=== PATIENT | female | born 1940 | race Caucasian/White ===

== ENCOUNTER 2016-11-29 08:53 | Emergency (ER) | payer MEDICARE, OTHER ==
[2015-05-26 13:51] VITALS: BMI 23.4
[~2016-11-29 08:53] MED LIST: ADVAIR 500/501 DISK INH; ASTELIN137 MCG NS; BONIVA150 MG PO; FLOVENT DI50 MCG/DIS INH; LASIX20 MG PO; LEVOXYL75 MCG PO; MEDROL DOSE PACK4 MG PO; MEDROL4 MG PO; SINGULAIR10 MG PO; SPIRIVA18 MCG INH; VENTOLIN HFA18 GM INH; ZITHROMAX 500M500 MG PO; ZPAK PO
[2016-11-29 09:18] LABS: BASOPHILS 0.6 % (0.0-2.0); EOSINOPHILS 1.4 % (0-7); HEMATOCRIT 39.6 % (36.0-48.0); HEMOGLOBIN 13.1 g/dL (12-16); IMMATURE GRANULOCYTES 0.5 % (0-5); LYMPHOCYTES 6.4 % (15-50); MCHC 33.1 g/dL (31.0-37.0); MCV 90.8 fL (80.0-100.0); MEAN PLATELET VOLUME 9.6 fL (7.4-10.4); MONOCYTES 15.4 % (2-11); NEUTROPHILS 75.7 % (40-80); PLATELET COUNT 197 10x3/uL (130-400); RBC 4.36 10x6/uL (4.00-5.40); RDW 14.3 % (11.5-14.5)
[2016-11-29 09:31] LABS: ALBUMIN 3.3 g/dL (3.4-5.0); ANION GAP 12.7 mmol/L (8-16); BILIRUBIN - TOTAL 0.54 mg/dL (0.2-1.3); CALCIUM 8.6 mg/dL (8.5-10.1); CARBON DIOXIDE 25.2 mmol/L (21.0-32.0); CREATININE - SERUM 0.8 mg/dL (0.6-1.3); POTASSIUM - SERUM 3.9 mmol/L (3.5-5.1); PROTEIN - SERUM 6.4 g/dL (6.4-8.2)
[2016-11-29 10:08] LABS: APPEARANCE HAZY (CLEAR); BILIRUBIN NEGATIVE (NEGATIVE); COLOR YELLOW (YELLOW); GLUCOSE NEGATIVE (NEGATIVE); KETONE MODERATE mg/dL (NEGATIVE); LEUKOCYTE ESTERASE TRACE (NEGATIVE); NITRITE NEGATIVE (NEGATIVE); PROTEIN TRACE mg/dL (NEGATIVE); SPECIFIC GRAVITY 1.015 (1.005-1.020); UROBILINOGEN NORMAL (NORMAL); WHITE CELLS - URINE OCC /hpf (0-5)
[2016-11-29 10:09] LABS: BACTERIA FEW /hpf (NONE SEEN); EPITHELIAL CELLS OCC /hpf (0-5); MUCUS <1+ /lpf (NONE SEEN); RED CELLS - URINE RARE /hpf (0-5)
== END 2016-11-29 13:20 | disposition home or self-care (01) ==
LOC: D.ER 08:53
PROVIDERS: Emergency Medicine Emergency Medical Services
DX: J11.1 Influenza due to unidentified influenza virus with other respiratory manifestations (principal); J44.9 Chronic obstructive pulmonary disease, unspecified

== ENCOUNTER → 2017-04-25 15:17 | Outpatient (CLI) | payer MEDICARE, OTHER ==
[2015-05-26 13:51] VITALS: BMI 23.4
== END | disposition home or self-care (01) ==
LOC: D.CT 15:17
DX: J32.9 Chronic sinusitis, unspecified (principal)

== ENCOUNTER → 2017-07-15 12:57 | Outpatient (CLI) | payer MEDICARE, OTHER ==
[2015-05-26 13:51] VITALS: BMI 23.4
== END | disposition home or self-care (01) ==
LOC: D.CT 12:57
DX: R05 Cough (principal)

== ENCOUNTER → 2017-07-26 09:10 | Outpatient (CLI) | payer MEDICARE, OTHER ==
[2015-05-26 13:51] VITALS: BMI 23.4
== END | disposition home or self-care (01) ==
LOC: D.US 09:10
DX: R10.9 Unspecified abdominal pain (principal)

== ENCOUNTER → 2017-12-14 17:23 | Outpatient (CLI) | payer MEDICARE, OTHER ==
[2015-05-26 13:51] VITALS: BMI 23.4
[~2017-12-14 17:23] MED LIST changes: +ALDACTONE25 MG PO; +BREO ELLIPTA 21 EACH; +INCRUSE ELLI62.5 MCG INH; -LASIX20 MG PO; +LASIX40 MG PO; +LEVOXYL50 MCG PO; -LEVOXYL75 MCG PO; +MUCINEX600 MG PO; +OMEPRAZOLE20 M1 PO; +STERAPRED DS 1210 MG PO; +VESICARE10 MG PO
== END | disposition home or self-care (01) ==
LOC: D.MAMMO 11:00
DX: Z12.31 Encounter for screening mammogram for malignant neoplasm of breast (principal)

== ENCOUNTER 2017-12-27 07:56 | Outpatient (CLI) | payer MEDICARE, OTHER ==
[~2017-12-27] VITALS: Ht 157.5 cm; Wt 50.0 kg
[~2017-12-27 07:56] MED LIST changes: -ALDACTONE25 MG PO; -BREO ELLIPTA 21 EACH; -INCRUSE ELLI62.5 MCG INH; -MUCINEX600 MG PO; -OMEPRAZOLE20 M1 PO; -STERAPRED DS 1210 MG PO; -VESICARE10 MG PO
[2017-12-27 09:01] LABS: HEMATOCRIT 39.5 % (36.0-48.0); MCHC 32.9 g/dL (31.0-37.0); MEAN PLATELET VOLUME 8.9 fL (7.4-10.4); RBC 4.34 10x6/uL (4.00-5.40); RDW 14.6 % (11.5-14.5); WBC 14.6 10x3/uL (4.8-10.8)
[2017-12-27 09:07] LABS: APTT 24.3 SECONDS (22.8-39.4); INR 1.07 (0.85-1.17); PROTIME 13.5 SECONDS (11.6-15.0)
[2017-12-27 09:10] LABS: PLATELET COUNT 525 10x3/uL (130-400)
[2017-12-27] MEDS ORDERED: BREO ELLIPTA 21 EACH (09:26)
[2017-12-27] MEDS ORDERED: INCRUSE ELLI62.5 MCG INH (09:26)
[2017-12-27] MEDS ORDERED: OMEPRAZOLE20 M1 PO (09:27)
[2017-12-27] MEDS ORDERED: ALDACTONE25 MG PO (09:28)
[2017-12-27] MEDS ORDERED: VESICARE10 MG PO (09:29)
[2017-12-27] MEDS ORDERED: STERAPRED DS 1210 MG PO (09:31)
[2017-12-27] MEDS ORDERED: MUCINEX600 MG PO (09:32)
[2017-12-27 09:38] VITALS: BP 124/64; Ht 157.5 cm; Wt 50.0 kg
[2017-12-27 09:58] LABS: LYMPHOCYTES 12 % (15-50); MONOCYTES 11 % (2-11); NEUTROPHILS 74 % (40-80); PLATELET ESTIMATE INCREASED
[2017-12-28 13:17] LABS: FUNGUS STAIN Final report (())
[2017-12-28 17:12] LABS: AFB SPECIMEN PROCESSING Concentration (())
[2018-01-03 14:19] LABS: FUNGUS CULTURE RESULT 1 Candida albicans (()); FUNGUS MYCOLOGY CULTURE Final report (())
[2018-01-16 12:12] LABS: ACID FAST CULTURE Positive (()); ACID FAST SMEAR Negative (()); M TUBERCULOSIS Negative (())
[2018-02-01 14:48] LABS: AMIKACIN 8.0 ug/mL (())
== END 2017-12-27 14:15 | disposition home or self-care (01) ==
LOC: D.OPS 07:56
PROVIDERS: Internal Medicine Pulmonary Disease
DX: J45.909 Unspecified asthma, uncomplicated (principal); J30.9 Allergic rhinitis, unspecified; R06.2 Wheezing; R05 Cough; D80.9 Immunodeficiency with predominantly antibody defects, unspecified; R06.02 Shortness of breath; Z01.812 Encounter for preprocedural laboratory examination

== ENCOUNTER 2018-03-07 10:20 | Inpatient (IN) | payer MEDICARE, OTHER ==
[~2018-03-07] VITALS: Ht 157.5 cm; Wt 49.0 kg
--- NOTE | ~2018-03-07 | OP ---
PATIENT NAME: BAKARI QUINTERO MEDICAL RECORD: [id number] LOCATION:[id number] ADMISSION DATE:03/07/18 SURGEON: OCTAVIA MORFIN MD DATE OF OPERATION: 03/10/2018 PREOPERATIVE DIAGNOSIS: Displaced femoral neck fracture of the left hip. POSTOPERATIVE DIAGNOSIS: Displaced femoral neck fracture of the left hip. PROCEDURE: Endoprosthetic bipolar prosthesis for displaced left femoral neck fracture. SURGEON: Octavia Morfin MD [employer] SALES ASSOCIATE: first anuradha Brown. INTRAOPERATIVE COMPLICATIONS: None. SUMMARY OF PATHOLOGIC FINDINGS: Displaced femoral neck fracture consistent with preoperative radiographs. IMPLANTS USED: Joel Anato stem size 130 x 5, 26 standard inner head V40 and a 43 x 26 outer component. ESTIMATED BLOOD LOSS: 100 cc. PROCEDURE IN DETAIL: After obtaining the appropriate preoperative orthopedic surgery consent as well as anesthetic consultation, evaluation and clearance, the patient was brought to the operating room and placed on the operating table in supine position. After general laryngeal mask airway was administered, the patient was placed in a right lateral decubitus position. All pressure points well padded to include down leg peroneal pad as well as axillary roll. The patient was held firmly to the operating table using the vacuum pack suction system. Left lower extremity and hip were then prepped and draped in routine sterile fashion. Curvilinear incision made over the greater trochanter. Dissection was carried down to the level of IT band. The IT band was split in line with fibers to reveal gluteus medius minimus. Gluteus medius minimus reflected anteriorly and saved for later reapproximation. The hip capsule was split in a T-type fashion. Fracture hematoma was evacuated. Femoral neck cut was made using the Anato femoral neck cutting guide. This was followed by extraction of the femoral head from the hip. Measurements were taken. The hip was irrigated and swept free of any fragmentation. Serial and sequential reaming and broaching for a size 5 Anato hip stem size [address] Trial was undertaken. It was felt that the standard 43 was the most appropriate. This was snapped together, tamped into place on the Villalobos taper, reduced, taken through a range of motion. Intraoperative radiograph showed excellent position and placement of all components. Hip capsule was reapproximated with #2 Ethibond followed by 5 transosseous reapproximation of gluteus medius minimus back to the greater trochanter. IT band was likewise closed with #2 Ethibond followed by #1 Vicryl, 2-0 Vicryl, and skin satinder. Sterile dressings were applied. The patient was awakened and taken to recovery room in stable condition. All final needle and sponge counts were correct. TRANSINT:[id number] Voice Confirmation ID: [id number] DOCUMENT ID: [id number] OPERATIVE REPORT [id number] BAKARI QUINTERO MD, COTAVIA HANDLEY at 1520 CC: [id number] DICTATION DATE: 03/10/18 1630 HAND EMBROIDERER: 03/11/18 0043 ADM IN [facility] [address] [place] [address]
[~2018-03-07 10:20] MED LIST changes: +ALDACTONE25 MG PO; +BREO ELLIPTA 21 EACH; +INCRUSE ELLI62.5 MCG INH; +MUCINEX600 MG PO; +OMEPRAZOLE20 M1 PO; +STERAPRED DS 1210 MG PO; +VESICARE10 MG PO
[2018-03-07 12:00] LABS: INR 0.96 (0.85-1.17); PROTIME 12.4 SECONDS (11.6-15.0)
[2018-03-07 12:02] LABS: APPEARANCE CLEAR (CLEAR); BILIRUBIN NEGATIVE (NEGATIVE); COLOR YELLOW (YELLOW); GLUCOSE NEGATIVE (NEGATIVE); KETONE NEGATIVE (NEGATIVE); NITRITE NEGATIVE (NEGATIVE); PROTEIN NEGATIVE (NEGATIVE); SPECIFIC GRAVITY 1.005 (1.005-1.020); UROBILINOGEN NORMAL (NORMAL)
[2018-03-07 12:26] LABS: ALBUMIN 3.2 g/dL (3.4-5.0); ALKALINE PHOSPHATASE 78 U/L (46-116); ALT (SGPT) 32 U/L (10-68); CALC OSMOLALITY 281 mosm/kg (275-300); CALCIUM 9.4 mg/dL (8.5-10.1); CARBON DIOXIDE 25.8 mmol/L (21.0-32.0); CHLORIDE - SERUM 106 mmol/L (98-107); CREATININE - SERUM 0.8 mg/dL (0.6-1.3); GLUCOSE 85 mg/dL (74-106); POTASSIUM - SERUM 3.9 mmol/L (3.5-5.1); PROTEIN - SERUM 6.2 g/dL (6.4-8.2); SODIUM 141 mmol/L (136-145); UREA NITROGEN 17 mg/dL (7-18); eGFR NON AFRICAN AMERICAN 74 mL/min (90-120)
[2018-03-07 12:35] LABS: CREATINE KINASE 96 UL (21-215); PRO BNP 214 pg/mL (0-450); TROPONIN-I < 0.017 ng/mL (0.000-0.060)
[2018-03-07 13:33] LABS: BASOPHILS 0.6 % (0-2); EOSINOPHILS 1.5 % (0-7); HEMATOCRIT 36.7 % (36.0-48.0); HEMOGLOBIN 12.2 g/dL (12-16); IMMATURE GRANULOCYTES 0.3 % (0-5); LYMPHOCYTES 14.2 % (15-50); MCH 30.2 pg (26.0-34.0); MCHC 33.2 g/dL (31.0-37.0); MCV 90.8 fL (80.0-100.0); MEAN PLATELET VOLUME 9.8 fL (7.4-10.4); MONOCYTES 11.4 % (2-11); RBC 4.04 10x6/uL (4.00-5.40); RDW 14.5 % (11.5-14.5); WBC 7.3 10x3/uL (4.8-10.8)
[2018-03-07 13:34] LABS: PLATELET COUNT 234 10x3/uL (130-400)
[2018-03-08 03:56] VITALS: BP 98/43
[2018-03-08 04:49] VITALS: BP 98/43; BMI 19.8
[2018-03-08 06:10] LABS: BASOPHILS 0.6 % (0-2); EOSINOPHILS 3.3 % (0-7); HEMATOCRIT 33.5 % (36.0-48.0); IMMATURE GRANULOCYTES 0.1 % (0-5); LYMPHOCYTES 12.1 % (15-50); MCH 30.1 pg (26.0-34.0); MCHC 32.8 g/dL (31.0-37.0); MCV 91.5 fL (80.0-100.0); MEAN PLATELET VOLUME 9.4 fL (7.4-10.4); MONOCYTES 13.4 % (2-11); NEUTROPHILS 70.5 % (40-80); RBC 3.66 10x6/uL (4.00-5.40); RDW 14.5 % (11.5-14.5)
[2018-03-08 06:35] LABS: PLATELET COUNT 176 10x3/uL (130-400)
[2018-03-08 06:44] LABS: ALBUMIN 2.6 g/dL (3.4-5.0); ALKALINE PHOSPHATASE 55 U/L (46-116); ALT (SGPT) 24 U/L (10-68); CALC OSMOLALITY 277 mosm/kg (275-300); CALCIUM 8.1 mg/dL (8.5-10.1); CARBON DIOXIDE 26.3 mmol/L (21.0-32.0); CHLORIDE - SERUM 108 mmol/L (98-107); CREATININE - SERUM 0.6 mg/dL (0.6-1.3); GLUCOSE 86 mg/dL (74-106); PROTEIN - SERUM 5.2 g/dL (6.4-8.2); SODIUM 140 mmol/L (136-145); eGFR NON AFRICAN AMERICAN > 90 mL/min (90-120)
[2018-03-08 06:48] LABS: UREA NITROGEN 12 mg/dL (7-18)
[2018-03-08 08:06] VITALS: BP 129/57
[2018-03-08 12:44] VITALS: BP 127/62
[2018-03-08 12:52] VITALS: Ht 157.5 cm; Wt 49.0 kg
[2018-03-08 16:25] VITALS: BP 116/40
[2018-03-08 21:38] VITALS: BP 99/34
[2018-03-09 03:50] VITALS: BP 102/41
[2018-03-09 06:00] LABS: BASOPHILS 0.3 % (0-2); EOSINOPHILS 0.9 % (0-7); HEMATOCRIT 32.7 % (36.0-48.0); IMMATURE GRANULOCYTES 0.8 % (0-5); LYMPHOCYTES 3.8 % (15-50); MCHC 33.6 g/dL (31.0-37.0); MEAN PLATELET VOLUME 9.6 fL (7.4-10.4); NEUTROPHILS 85.2 % (40-80); PLATELET COUNT 153 10x3/uL (130-400); RBC 3.67 10x6/uL (4.00-5.40); RDW 14.2 % (11.5-14.5)
[2018-03-09 06:05] LABS: WBC 15.2 10x3/uL (4.8-10.8)
[2018-03-09 06:06] LABS: MCV 89.1 fL (80.0-100.0)
[2018-03-09 06:22] LABS: CALC OSMOLALITY 266 mosm/kg (275-300); CALCIUM 7.7 mg/dL (8.5-10.1); CARBON DIOXIDE 21.4 mmol/L (21.0-32.0); CHLORIDE - SERUM 101 mmol/L (98-107); CREATININE - SERUM 0.7 mg/dL (0.6-1.3); GLUCOSE 71 mg/dL (74-106); SODIUM 135 mmol/L (136-145); UREA NITROGEN 11 mg/dL (7-18); eGFR NON AFRICAN AMERICAN 86 mL/min (90-120)
[2018-03-09 08:30] VITALS: BP 96/39
[2018-03-09 12:27] VITALS: BP 109/38
[2018-03-09 13:05] LABS: APPEARANCE CLEAR (CLEAR); COLOR YELLOW (YELLOW); NITRITE NEGATIVE (NEGATIVE); PROTEIN NEGATIVE (NEGATIVE); SPECIFIC GRAVITY 1.015 (1.005-1.020)
[2018-03-09 13:06] LABS: BILIRUBIN NEGATIVE (NEGATIVE); GLUCOSE NEGATIVE (NEGATIVE); KETONE MODERATE mg/dL (NEGATIVE); UROBILINOGEN NORMAL (NORMAL)
[2018-03-09 13:09] LABS: BACTERIA MODERATE /hpf (NONE SEEN); EPITHELIAL CELLS 0-5 /hpf (0-5); MUCUS <1+ /lpf (NONE SEEN); WHITE CELLS - URINE 0-5 /hpf (0-5)
[2018-03-09 15:59] VITALS: BP 118/42
[2018-03-09 21:15] VITALS: BP 121/56
[2018-03-10] VITALS (9 sets, daily range): BP systolic 91–125; BP diastolic 40–63
[2018-03-10 04:21] LABS: BASOPHILS 0.1 % (0-2); EOSINOPHILS 0.2 % (0-7); HEMATOCRIT 29.8 % (36.0-48.0); HEMOGLOBIN 10.1 g/dL (12-16); IMMATURE GRANULOCYTES 3.6 % (0-5); LYMPHOCYTES 2.9 % (15-50); MCH 29.9 pg (26.0-34.0); MCHC 33.9 g/dL (31.0-37.0); MCV 88.2 fL (80.0-100.0); MEAN PLATELET VOLUME 9.4 fL (7.4-10.4); NEUTROPHILS 83.2 % (40-80); RBC 3.38 10x6/uL (4.00-5.40); WBC 15.5 10x3/uL (4.8-10.8)
[2018-03-10 04:22] LABS: PLATELET COUNT 117 10x3/uL (130-400)
[2018-03-10 04:27] LABS: CALC OSMOLALITY 268 mosm/kg (275-300); CALCIUM 7.8 mg/dL (8.5-10.1); CARBON DIOXIDE 20.9 mmol/L (21.0-32.0); CHLORIDE - SERUM 103 mmol/L (98-107); CREATININE - SERUM 0.7 mg/dL (0.6-1.3); GLUCOSE 92 mg/dL (74-106); SODIUM 135 mmol/L (136-145); UREA NITROGEN 11 mg/dL (7-18); eGFR NON AFRICAN AMERICAN 86 mL/min (90-120)
[2018-03-11 03:52] VITALS: BP 131/56
[2018-03-11 05:04] LABS: HEMATOCRIT 28.1 % (36.0-48.0); HEMOGLOBIN 9.5 g/dL (12-16); MCH 29.8 pg (26.0-34.0); MCHC 33.8 g/dL (31.0-37.0); MCV 88.1 fL (80.0-100.0); RBC 3.19 10x6/uL (4.00-5.40); RDW 14.3 % (11.5-14.5); WBC 12.4 10x3/uL (4.8-10.8)
[2018-03-11 08:10] VITALS: BP 115/41
[2018-03-11 13:06] VITALS: BP 129/51
[2018-03-11 16:04] VITALS: BP 115/46
[2018-03-11 19:58] VITALS: BP 114/44
[2018-03-12 00:04] VITALS: BP 95/42
[2018-03-12 04:00] VITALS: BP 134/46
[2018-03-12 04:56] LABS: HEMATOCRIT 25.7 % (36.0-48.0); HEMOGLOBIN 8.7 g/dL (12-16); MCH 29.5 pg (26.0-34.0); MCHC 33.9 g/dL (31.0-37.0); MCV 87.1 fL (80.0-100.0); MEAN PLATELET VOLUME 9.7 fL (7.4-10.4); RBC 2.95 10x6/uL (4.00-5.40); RDW 14.3 % (11.5-14.5)
[2018-03-12 05:01] LABS: WBC 8.6 10x3/uL (4.8-10.8)
[2018-03-12 08:20] VITALS: BP 132/52
[2018-03-12 12:48] VITALS: BP 135/59
[2018-03-12 16:55] VITALS: BP 136/52
[2018-03-12 20:00] VITALS: BP 106/40
[2018-03-13 04:00] VITALS: BP 125/46
[2018-03-13 08:06] VITALS: BP 129/46
[2018-03-13 11:00] LABS: HEMATOCRIT 26.6 % (36.0-48.0); HEMOGLOBIN 9.1 g/dL (12-16); MCH 29.8 pg (26.0-34.0); MCHC 34.2 g/dL (31.0-37.0); MCV 87.2 fL (80.0-100.0); RBC 3.05 10x6/uL (4.00-5.40); RDW 14.1 % (11.5-14.5)
[2018-03-13 13:15] VITALS: BP 165/87
[2018-03-13 16:13] VITALS: BP 130/50
[2018-03-13 20:00] VITALS: BP 99/46
[2018-03-14 00:33] VITALS: BP 108/44
[2018-03-14 04:00] VITALS: BP 121/46
[2018-03-14 08:42] VITALS: BP 118/44
[2018-03-14 13:04] VITALS: BP 115/42
[2018-03-14 16:47] VITALS: BP 123/48
[2018-03-14 20:00] VITALS: BP 131/53
[2018-03-15 04:00] VITALS: BP 124/42
[2018-03-15 08:49] VITALS: BP 120/50
[2018-03-15 12:50] VITALS: BP 109/48
[2018-03-15 16:16] LABS: AEROBE ID Final report (())
[2018-03-15 16:47] VITALS: BP 107/57
[2018-03-15 20:08] VITALS: BP 118/57
[2018-03-15 23:43] VITALS: BP 102/41
[2018-03-16 03:58] VITALS: BP 99/44
[2018-03-16 08:20] VITALS: BP 124/50
[2018-03-16 11:40] VITALS: BP 122/44
[2018-03-16 15:52] VITALS: BP 111/41
[2018-03-16 19:58] VITALS: BP 108/42
[2018-03-17] VITALS (7 sets, daily range): BP systolic 101–131; BP diastolic 44–62
[2018-03-18 04:20] VITALS: BP 104/46
[2018-03-18 08:16] VITALS: BP 126/48
[2018-03-18] MEDS ORDERED: NYSTATIN ORAL SU5 ML PO (08:26)
[2018-03-18] MEDS ORDERED: VIBRAMYCIN 100100 MG PO (08:28)
[2018-03-18] MEDS ORDERED: PENICILLIN V P500 MG PO (08:28)
[2018-03-18] MEDS ORDERED: ZOFRAN4 MG PO (08:30)
[2018-03-18] MEDS ORDERED: PERCOCET 10/3251 TA1 PO (08:30)
[2018-03-18] MEDS ORDERED: NYSTATIN1 PWD TOPICAL (08:30)
== END 2018-03-18 16:16 | DRG 470 ==
LOC: D.ER 10:20 → D.MS 12:54 → D.EDHOLD 12:54 → D.MS 18:45
PROVIDERS: Family Medicine; Nurse Practitioner Family; Orthopaedic Surgery
PROC: 0SRR0JZ Replacement of Right Hip Joint, Femoral Surface with Synthetic Substitute, Open Approach (ICD-10-PCS; principal; 2018-03-10 10:00)
DX: S72.001A Fracture of unspecified part of neck of right femur, initial encounter for closed fracture (principal); L03.114 Cellulitis of left upper limb; B37.0 Candidal stomatitis; D62 Acute posthemorrhagic anemia; W19.XXXA Unspecified fall, initial encounter; E03.9 Hypothyroidism, unspecified; J44.9 Chronic obstructive pulmonary disease, unspecified; K59.00 Constipation, unspecified; B95.0 Streptococcus, group A, as the cause of diseases classified elsewhere

== ENCOUNTER 2018-12-29 19:00 | Outpatient (CLI) | payer MEDICARE, OTHER ==
[2018-03-08 12:52] VITALS: BMI 19.7
[~2018-12-29 19:00] MED LIST changes: +NYSTATIN ORAL SU5 ML PO; +NYSTATIN1 PWD TOPICAL; +PENICILLIN V P500 MG PO; +PERCOCET 10/3251 TA1 PO; +VIBRAMYCIN 100100 MG PO; +ZOFRAN4 MG PO
== END 2018-12-29 23:59 | disposition home or self-care (01) ==
LOC: D.MAMMO 19:00
PROVIDERS: ATTEND Family Medicine
DX: Z12.31 Encounter for screening mammogram for malignant neoplasm of breast (principal)

== ENCOUNTER → 2019-02-01 18:48 | Outpatient (CLI) | payer MEDICARE, OTHER ==
[2018-03-08 12:52] VITALS: BMI 19.7
== END | disposition home or self-care (01) ==
LOC: D.MAMMO 10:00
PROVIDERS: ATTEND Family Medicine
DX: R92.8 Other abnormal and inconclusive findings on diagnostic imaging of breast (principal)

== ENCOUNTER → 2019-09-11 08:30 | Outpatient (CLI) | payer MEDICARE, OTHER ==
[2018-03-08 12:52] VITALS: BMI 19.7
== END | disposition home or self-care (01) ==
LOC: D.MAMMO 08:30
PROVIDERS: ATTEND Family Medicine
DX: N63.12 Unspecified lump in the right breast, upper inner quadrant (principal)

== ENCOUNTER → 2020-07-01 12:46 | Outpatient (CLI) | payer MEDICARE, OTHER ==
[2018-03-08 12:52] VITALS: BMI 19.7
== END | disposition home or self-care (01) ==
LOC: D.RAD 12:46
PROVIDERS: ATTEND Family Medicine
DX: R13.10 Dysphagia, unspecified (principal)

== ENCOUNTER → 2021-02-19 20:14 | Outpatient (CLI) | payer MEDICARE, OTHER ==
[2020-09-17 13:14] VITALS: BMI 15.3
[~2021-02-19 20:14] MED LIST changes: +ELIQUIS2.5 MG PO; +PERCOCET 10-321 EAC1 PO
== END | disposition home or self-care (01) ==
LOC: D.MAMMO 10:00
PROVIDERS: ATTEND Family Medicine
DX: Z12.31 Encounter for screening mammogram for malignant neoplasm of breast (principal)